=== PATIENT | male | born 1985 | race Caucasian/White ===

== ENCOUNTER 2020-11-15 01:00 | Emergency (ER) | payer MEDICAID, SELFPAY ==
[2020-11-15 01:10] VITALS: BP 128/71; PULSE 89; RESP 17; TEMP 36.6; O2SAT 97; BMI 22.9
[2020-11-15 01:19] VITALS: BP 128/71; PULSE 89; RESP 17; TEMP 36.6; O2SAT 97
[2020-11-15 01:55] LABS: Appearance Urine CLEAR; Color Urine YELLOW; Glucose Urine UA NEG (NEG); Leukocyte Esterase Urine NEG (NEG); Nitrite Urine NEG (NEG); PH 5.5 (5.0-8.0); Urine Blood NEG (NEG); Urine Ketones NEG (NEG); Urine Protein NEG (NEG-TRACE)
[2020-11-15 01:58] LABS: COVID-19 Test Negative (Negative); IDNOW Serial# 9DD0AD1C
[2020-11-15 02:04] LABS: Amphetamine Screen Urine Not Detected (Not Detect); Barbiturates, Urine Not Detected (Not Detect); Benzodiazepines Screen Urine Not Detected (Not Detect); Cannabinoid Screen Urine POSITIVE (Not Detect); Cocaine Screen Urine POSITIVE (Not Detect); Fentanyl, urine Not Detected (Not Detect); Opiate Screen Urine Not Detected (Not Detect); Phencyclidine Screen Urine Not Detected (Not Detect)
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
[2020-11-15 02:22] LABS: Mucus Urine TRACE /LPF; RBC Urine 0 /HPF (0); Squamous Epithelial Cell Urine TRACE /LPF; WBC Urine 0-2 /HPF (0-4)
--- NOTE | 2020-11-15 06:16 | PC.NURSE ---
Patient slept through the night, no distress observed/reported, refused lab work due to needle phobia, BHN referral completed/confirmed, pending evaluation, will continue to monitor
--- NOTE | 2020-11-15 07:42 | PC.NURSE ---
patient appears in no distress remains asleep at begin of shift respirations are even and unlabored
--- NOTE | 2020-11-15 09:18 | PC.NURSE ---
Pt asked if they would allow staff to draw blood. PT refused blood draw. Will attempt again later in the day.
[2020-11-15 09:25] VITALS: BP 123/86; PULSE 87; RESP 16; TEMP 37.1; O2SAT 98
--- NOTE | 2020-11-15 15:07 | PC.NURSE ---
client responded to inquiry from staff about blood draw, patient continues to decline. patient inquired how long he would be here, t/w informed patient that he may be reviewed in morning but due to the seriousness he would be remaining, patient escalated some, talked about calling his laborer [employer]. a few moments later patient yelled out. are you fucking kidding me? youre going to lock people up like in cages?' t/w responded with inquiry that i could pursue a med for him, tbc...
--- NOTE | 2020-11-15 15:15 | PC.NURSE ---
patient started to yell at this business writer, and i discontinued the conversation, clarifying that police had brought him he had said my dogs at home, you dont know how important i am at my job t/w advised to call someone to help in regards to his dog and that one should not lose employment due to hospitalization.
--- NOTE | 2020-11-15 21:31 | PC.NURSE ---
Patient is in bed resting quietly, still refusing his blood work d/t needle phobia per patient, disposition per N is Joey F/U in the morning, no behavior concerns at this time, at time verbally abusive and threatening with frequent use of F-word, patient is not on any medication, will continue to monitor.
--- NOTE | 2020-11-16 05:39 | PC.NURSE ---
Patient slept through the night, no distress observed/reported, patient is not on any medication, behavior not concerning at this time may become concerning, disposition BHN Joey F/U, will continue to monitor.
[2020-11-16 06:56] VITALS: BP 111/87; PULSE 77; TEMP 36.3
--- NOTE | 2020-11-16 07:13 | PC.NURSE ---
patient appears to remain at rest at present, respirations are even and unlabored, appears in no distress
[2020-11-16 09:13] VITALS: BP 142/109; PULSE 78; RESP 16; O2SAT 96
== END 2020-11-16 13:44 | disposition home or self-care (01) ==
PROVIDERS: Emergency Provider Student in an Organized Health Care Education/Training Program
DX: R45.851 Suicidal ideations (principal); F10.920 Alcohol use, unspecified with intoxication, uncomplicated; Y90.9 Presence of alcohol in blood, level not specified; F14.90 Cocaine use, unspecified, uncomplicated; F12.90 Cannabis use, unspecified, uncomplicated; Z20.822 Contact with and (suspected) exposure to COVID-19
CPT/HCPCS: 36415; 80307; 81001; 87635; 99284; 99285

== ENCOUNTER 2020-11-22 17:35 | Emergency (ER) | payer MEDICAID, SELFPAY ==
[2020-11-22 17:36] VITALS: BP 167/98; PULSE 80; RESP 16; TEMP 36.8; O2SAT 100; BMI 22.9
--- NOTE | 2020-11-22 19:25 | ED_ITS ---
HPI - Dental/Oral General Chief complaint: Dental/Oral Stated complaint: Tooth Abscess Time Seen by Provider: 11/22/20 19:24 Source: patient Limitations: no limitations History of Present Illness HPI Narrative: This is the 31 for [age] male who complains of swelling to the roof of his mouth near some teeth which have rotted down to the gumline for. This begana few days ago. Patient denies any fever. Denies trouble swallowing. He does have a dentist he can follow-up with. He has tried Advil and Tylenol without relief. Related Data Previous Rx's Medication Instructions Recorded clindamycin HCl 300 mg capsule 300 mg PO Q6H #28 cap 11/22/20 oxycodone-acetaminophen 7.5 mg-325 1 tab PO Q6H PRN #10 tab 11/22/20 mg tablet (Percocet) Allergies Allergy/AdvReac Type Severity Reaction Status Date / Time No Known Allergies Allergy Verified 11/15/20 01:17 Review of Systems Constitutional: Constitutional: Reports as per HPI and Denies fever(s) Eyes: Eyes: Reports no additional eye complaints ENT: Reports as per HPI and Reports dental pain Neurologic: Denies Sensory deficit (Neuro) [facility] Social History Social History Advance Directives: No Advance Directives Information Provided: No Physical Exam Vital Signs: Vital Signs: Last Vital Signs Temp 98.2 F 11/22/20 17:36 Pulse 73 11/22/20 19:37 Resp 17 11/22/20 19:37 BP 166/101 H 11/22/20 19:37 Pulse Ox 99 11/22/20 19:37 Body Mass Index 22.9 Const: General: cooperative, no acute distress and alert Orientation/consciousness: patient oriented x3 HENMT: Head: Yes normal to inspection Mouth: tongue normal, moist mucous membranes and other (Fluctuant approximately 1-1/4 inch abscess right anterior hard palate with ) Teeth and gingiva: abnormal dentition (Teeth carious, down to gumline adjacent to palate abscess) Eyes: General: appearance normal, both eyes and all related structures Eyelids: Yes eyelids normal Conjunctivae: conjunctivae normal Pupils: Equal, round and reactive pupils present Neck: Neck: Yes normal visual inspection and Yes supple Chest: Chest palpation & inspection: normal inspection of the chest Resp: Effort & Inspection: normal respiratory effort Auscultation: clear to auscultation bilaterally Cardio: Rate: regular rate Rhythm: regular rhythm Heart sounds: S1 normal heart sound present, S2 normal heart sound present, no gallops, no murmurs and no rubs GI: Palpation (GI): Soft to palpation, nontender and Other GI palpation findings present (Non-distended) Auscultation: normal bowel sounds Skin: General skin exam: no rashes or lesions noted Neuro: General: patient oriented x3, no focal motor deficits and CN's II-XI intact bilaterally Cranial nerves: Yes Equal, round and reactive pupils present Cognition (Neuro): normal cognition Motor exam (neuro): 5/5 motor strength present throughout Sensory Exam: No Sensory deficit (Neuro) Extrem: General: Yes normal to inspection and Yes no pedal edema Psych: Appearance: grossly normal Affect: normal affect MDM - Dental/Oral MDM Narrative Medical decision making narrative: Patient with a fluctuant abscess on his hard palate adjacent to carious teeth, right maxillary. Patient is being started on clindamycin. Abscess was drained. Patient needs dental or oral surgery follow- up as soon as possible. Culture was not obtained because when the 11 blade was used to cut into the abscess cavity the pus immediately drained into the oropharynx, and none further could be expressed Procedures Abscess I/D Site: oral (Hard palate, right side) Local Anesthetic: lidocaine 1% and with epi Amount of anesthesia used (mL): 1 Technique: incised with blade Amount of fluid expressed (mL): 1 Sent for culture/gram staining?: No Irrigation: No Packing used?: none Complications: pain Discharge Plan Discharge Clinical Impression: Dental caries, Abscess, dental Patient Disposition: Home, Self-Care Instructions: Abscess Incision and Drainage (DC) Additional Instructions: Gargle with warm salty water for 10 minutes 4 times a day. Follow up with a dentist or oral surgeon as soon as possible to have the decayed teeth extracted. Take antibiotics as prescribed. Return for any new or worsened symptoms such as increased swelling, difficulty swallowing, fever, headache Prescriptions: New clindamycin HCl 300 mg capsule 300 mg PO Q6H Qty: 28 RF: 0 oxycodone-acetaminophen [Percocet] 7.5-325 mg tablet 1 tab PO Q6H PRN (Reason: pain) Qty: 10 RF: 0 Interventions: ED Discharge Assessment Last Done: 11/22/20 21:20 Discharge Date/Time: 11/22/20 21:21
[2020-11-22 19:37] VITALS: BP 166/101; PULSE 73; RESP 17; O2SAT 99
[2020-11-22] MEDS: Clindamycin HCL 300 MG CAPSULE 600 MG PO (19:44)
[2020-11-22] MEDS: oxyCODONE HCl Immed Release 5 MG TABLET 10 MG PO (21:14)
== END 2020-11-22 21:21 | disposition home or self-care (01) ==
PROVIDERS: Emergency Provider Emergency Medicine
DX: K04.7 Periapical abscess without sinus (principal); K02.9 Dental caries, unspecified
CPT/HCPCS: 41800; 99284